=== PATIENT | female | born 1980 | race Two or more races ===

== ENCOUNTER 2025-11-03 15:31 | Emergency (ER) | payer BC ==
[~2025-11-03] VITALS: Ht 157.5 cm; Wt 108.4 kg
[2025-11-03] MEDS ORDERED: KETOROLAC TROMETHAMINE 60 MG VIAL IM ONE (16:45)
[2025-11-03] MEDS ORDERED: ACETAMINOPHEN 500 MG GEL..CAP PO ONE (16:45)
[2025-11-03] MEDS ORDERED: ORPHENADRINE CITRATE 30 MG/ML AMPUL IM ONE (16:45)
== END 2025-11-03 19:27 | disposition home or self-care (01) ==
LOC: ER 15:31
DX: S93.491A Sprain of other ligament of right ankle, initial encounter (principal); S90.00XA Contusion of unspecified ankle, initial encounter; X58.XXXA Exposure to other specified factors, initial encounter; Y93.89 Activity, other specified; Y92.830 Public park as the place of occurrence of the external cause; Y99.8 Other external cause status; Z88.8 Allergy status to other drugs, medicaments and biological substances